=== PATIENT | female | born 1985 | race Caucasian/White ===

== ENCOUNTER → 2018-08-02 13:10 | Outpatient (CLI) | payer OTHER, MEDICAID, SELFPAY ==
--- NOTE | 2018-08-02 | DI.US.S_ITS ---
PROCEDURE: US OB >= 14 WEEKS FETUS INDICATIONS: 20 WEEK ANATOMY SCAN OUTSIDE/PRIOR DATING DATA: Last menstrual period (LMP): 03/15/18. LMP-based estimated date of delivery (JARED): 12/20/18. First dating scan (date and location): None. Estimated date of delivery (JARED) from first dating scan: None. TECHNIQUE: Real-time scanning was performed of the fetus, with image documentation and biometric measurements. Endovaginal scanning: Not performed COMPARISON: None. FINDINGS: General: A single living intrauterine gestation is present. Presentation: Breech Placenta: Placental position is fundal, without previa. Amniotic fluid index: 20 cm, normal range is 5-24 cm. heart rate: 155 beats per minute. Maternal cervical canal: 4.1 cm long. Normal lower limit is 2.5 cm biometrics: Biparietal diameter: 4.4 cm, 19 weeks 2 days Head circumference: 17.4 cm, 19 weeks 6 days Abdominal circumference: 14 cm, 19 weeks 2 days Femur length: 3 cm, 19 weeks 3 days Estimated gestational age from initial scan: 20 week zero day. Composite gestational age from present scan: 19 weeks 3 days Estimated weight and percentile: 292 g, 80% Measurement variability for biometric dating: +/- 7 days from 14 weeks to 15 weeks 6 days gestation, +/- 10 days from 16 weeks to 21 weeks 6 days gestation, +/- 2 weeks from 22 weeks to 27 weeks 6 days gestation, +/- 3 weeks for 28 weeks gestation or later. weight reference: 4500 g or EFW >90/95% is considered macrosomia or large for gestational age. EFW <10% is small for gestational age. EFW 5% or less is considered intra-uterine growth restriction. Anatomic survey: Neuro: Ventricles are non-dilated at less than 10 mm. Cisterna magna is normal at 3-11 mm. Cerebellum is normal in size and morphology. Nuchal skin fold: Normal at less than 6 mm between 14-21 weeks gestational age. Face: Nose and lips, facial profile are normal. Spine: No evidence for spina bifida. Heart: 4-chambered heart is present, with normal ventricular outflow tracts. Diaphragm: Diaphragm is intact. Stomach: Left-sided stomach is present. Kidneys: No hydronephrosis. Normal is less than 5 mm in 2nd trimester, less than 7 mm in 3rd trimester. Cord: 3-vessel cord has orthotopic insertion. Bladder: Normal in size. Extremities: All 4 extremities identified. IMPRESSION: 1. Single live intrauterine with fetus in breech presentation. heart rate is 155 beats per minute. Normal growth. 2. Normal anatomic survey. Dictated by: Jose F Espinal M.D. on 08/02/2018 at 16:24 Approved by: Jose F Espinal M.D. on 08/02/2018 at 16:27
== END ==
PROVIDERS: Visit Provider Registered Nurse
DX: Z36.89 Encounter for other specified antenatal screening (principal); Z3A.19 19 weeks gestation of pregnancy
CPT/HCPCS: 76811